=== PATIENT | male | born 1975 | race Caucasian/White ===

== ENCOUNTER 2020-10-21 13:45 | Emergency (ER) | payer OTHER, BC ==
[~2020-10-21] VITALS: Ht 175.3 cm; Wt 97.5 kg
--- NOTE | 2020-10-21 13:50 | NUR ---
ARRIVAL PT ARRIVED TO ED WITH C/O RIGHT KNEE INJURY AFTER MISSING STEP ON TRUCK AND TWISTING KNEE. PT REPORTS HEARING A POP AND NOW HAS BURNING FROM KNEE DOWN. BEDSIDE MONITORS APPLIED. VITAL SIGNS STABLE. BED IN LOW LOCKED POSITION. NO SWELLING OR BRUISING NOTED.
[2020-10-21 14:02] VITALS: BP 151/94
[2020-10-21 14:08] VITALS: BP 151/94
--- NOTE | 2020-10-21 14:54 | DIREP ---
PROCEDURE:XRAY KNEE 2 VWS-RT COMPARISON:None. INDICATIONS:Pain/injury FINDINGS: BONES:There appears to be a mildly displaced fracture of the medial aspect of the fibular head, only visible on the AP view. JOINTS:Normal. SOFT TISSUES:Normal. OTHER:No additional findings. CONCLUSION:Probable fracture of the right fibular head. Dictated by: Eduardo Bran M.D. on 10/21/2020 at 02:52 PM
--- NOTE | 2020-10-21 15:46 | ER.PDOC ---
General Chief Complaint: Extremities Stated Complaint: INJURED LEG Time seen by MD: 15:42 Source: patient Exam Limitations: no limitations History of Present Illness Initial Comments Right knee pain after twisting it. Onset: just prior to arrival Where: work Context: twist Severity: moderate Past Medical History Medical History: high cholesterol, hypertension, other Surgical History: shoulder, other Family History Significant Family History: no pertinent family hx Social History Alcohol Use: occassionally Drug Use: none Review of Systems Constitutional: no symptoms reported EENTM: no symptoms reported Respiratory: no symptoms reported Cardiovascular: no symptoms reported Gastrointestinal: no symptoms reported Musculoskeletal: see HPI All Other Systems: Reviewed and Negative Physical Exam General Appearance: Alert, No Apparent Distress Foot: nml inspection, non-tender, nml color/temp, skin intact Ankle: nml inspection, non-tender, nml ROM, no joint swelling, skin intact Knee: tenderness (right knee, no swelling or deformity) Thigh/Hip: nml inspection Gait: limited by pain Neuro/Vasc/Tendon: sensation nml, motor nml, no vascular compromise, tendon function nml Skin: warm/dry Head/ENT: nml inspection, pharynx nml Neck/Back: nml inspection, non-tender Abdomen: non-tender, pelvis stable Results/Orders Results/Orders Orders - JAGDISH FALCON MD Xr Knee Rt 2v (10/21/20 14:10) Vital Signs Date Time Temp Pulse Resp B/P (MAP) Pulse Ox O2 Delivery O2 Flow Rate FiO2 10/21/20 14:08 98.1 83 16 151/94 (113) 97 Room Air 10/21/20 14:02 98.1 83 16 10/21/20 14:02 98.1 83 16 151/94 (113) 97 Room Air 10/21/20 14:02 98.1 83 16 97 Progress Progress X rays right knee: Probable fracture of the right fibular head. [place] in [place] and is working in this area. He was given Crutches and Knee Immobilizer. ER DEPART Departure Time of Disposition: 15:44 Disposition: 01 HOME, SELF-CARE Impression: Primary Impression: Right fibular fracture Condition: Stable Referrals: PCP,UNKNOWN (PCP) PRIMARY CARE PROVIDER Additional Instructions: Ice Ibuprofen F/U with Dr. Caputo or any Orthopedic Doctor this week. Call for appointment. Duration or Time Spent with Pa: 20 min Problem Qualifiers Primary Impression: Right fibular fracture Encounter type: initial encounter Fibula location: proximal Fracture type: closed Fracture morphology: unspecified fracture morphology Qualified Codes: S82.831A - Other fracture of upper and lower end of right fibula, initial encounter for closed fracture JAGDISH FALCON MD Oct 21, 2020 15:46
== END 2020-10-21 15:56 | disposition home or self-care (01) ==
LOC: ER 13:45
DX: S82.451A Displaced comminuted fracture of shaft of right fibula, initial encounter for closed fracture (principal); I10 Essential (primary) hypertension; E78.00 Pure hypercholesterolemia, unspecified; X50.1XXA Overexertion from prolonged static or awkward postures, initial encounter; Y93.89 Activity, other specified; Y92.89 Other specified places as the place of occurrence of the external cause; Y99.8 Other external cause status
CPT/HCPCS: 29505; 73560; 99283